=== PATIENT | male | born 1980 | race Two or more races ===

== ENCOUNTER 2021-09-21 19:07 | Emergency (ER) | payer OTHER ==
[~2021-09-21] VITALS: Ht 182.9 cm; Wt 88.5 kg
[2021-09-21] MEDS ORDERED: ADVIL (20:07)
[2021-09-21] MEDS ORDERED: DUI500 PO (20:25)
[2021-09-21] MEDS ORDERED: SILVADENE20 GM TOP (20:25)
[2021-09-21] MEDS ORDERED: KETO10TA2 PO (20:26)
== END 2021-09-21 20:59 | disposition home or self-care (01) ==
LOC: ER 19:07
DX: T23.202A Burn of second degree of left hand, unspecified site, initial encounter (principal); X10.0XXA Contact with hot drinks, initial encounter; Y93.9 Activity, unspecified; Y92.9 Unspecified place or not applicable; Y99.9 Unspecified external cause status; Z88.8 Allergy status to other drugs, medicaments and biological substances